=== PATIENT | male | born 1950 | race Caucasian/White ===

== ENCOUNTER 2019-11-26 19:45 | IRF | payer MEDICARE, SELFPAY ==
--- NOTE | 2019-11-26 19:57 | ADMGEN ---
This patient, Antonio Amin, was admitted to [facility] Room 225-01. Patient/family oriented to hospital policies and general routines including ID bracelet, bed and alarms, visiting hours, pain management, procedures, bathroom and other care routines, personal items, smoking policy, room service/diet, and visiting hours. Valuables list has been completed. Information on how to activate the Rapid Response Team has been discussed. Patient/Family are encouraged to report perceived risks to care and to ask questions if they do not understand what they are told or what they should do.
[2019-11-26] MEDS: MORPHINE SULFATE 15 MG TABCR PO (21:21)
[2019-11-26] MEDS: SENNA/DOCUSATE SODIUM TABLET 2 TAB PO (21:22)
[2019-11-26] MEDS: GABAPENTIN 400 MG CAPSULE 1200 MG PO (21:22)
[2019-11-26] MEDS: polyethylene glycoL 3350 17 GM POWD.PACK PO (21:23)
[2019-11-26] MEDS: SIMVASTATIN 10 MG TABLET PO (21:24)
[2019-11-26 21:42] LABS: Glucose Point of Care 132 (65-105)
[2019-11-26 22:00] VITALS: BP 120/63; PULSE 82; RESP 18; TEMP 37.4; O2SAT 99
[2019-11-27 04:56] LABS: Basophils Percent Auto 0.6 % (0.2-1.2); Eosinophils Percent Auto 0.3 % (0-4.4); Hematocrit 37.8 % (42.0-52.0); Hemoglobin 11.4 g/dL (14.0-18.0); Immature Granulocyte Absolute 0.08 K/mm3 (0.00-0.031); Immature Granulocyte Percent A 1.1 % (0-0.5); Lymphocytes Absolute Auto 0.71 K/mm3 (0.9-3.2); Lymphocytes Percent Auto 10.2 % (18.3-44.2); Mean Corpuscular HGB Conc 30.2 g/dl (32-36); Mean Corpuscular Volume 99.5 fl (80-100); Mean Platelet Volume 10.5 fl (7.4-10.4); Monocytes Percent Auto 13.8 % (2.6-8.5); Neutrophils Absolute Auto 5.2 K/mm3 (1.3-6.7); Platelet Count Result 166 k/mm3 (150-375); Red Cell Distribution Width 15.2 % (11.5-14.5)
[2019-11-27 05:04] LABS: Blood Urea Nitrogen 22 mg/dL (9-20); Carbon Dioxide 28 mmol/L (22-30); Chloride 105 mmol/L (98-107); Estimated Glomerular Filt Rate > 60; Glucose 151 mg/dL (75-110); Sodium 136 mmol/L (137-145)
[2019-11-27 05:08] LABS: Hemoglobin A1C 6.3 % (<5.7)
[2019-11-27 06:00] VITALS: BP 116/64; PULSE 85; RESP 20; TEMP 36.7; O2SAT 98
[2019-11-27 06:42] VITALS: BMI 44.1
[2019-11-27 06:44] LABS: Glucose Point of Care 129 (65-105)
[2019-11-27 08:00] VITALS: PULSE 85; RESP 20; O2SAT 98
[2019-11-27] MEDS: metFORMIN HCL XR 500 MG TAB.SR.24H 1000 MG PO (09:01)
[2019-11-27] MEDS: TAMSULOSIN HCL 0.4 MG CAPSULE PO (09:01)
[2019-11-27] MEDS: polyethylene glycoL 3350 17 GM POWD.PACK PO ×2 (09:02→21:01)
[2019-11-27] MEDS: SENNA/DOCUSATE SODIUM TABLET 2 TAB PO ×2 (09:02→21:01)
[2019-11-27] MEDS: GABAPENTIN 400 MG CAPSULE 1200 MG PO ×2 (09:02→21:01)
[2019-11-27] MEDS: MORPHINE SULFATE 15 MG TABCR PO ×2 (10:34→21:06)
[2019-11-27 11:55] LABS: Glucose Point of Care 96 (65-105)
--- NOTE | 2019-11-27 12:30 | WPDREHABHP ---
H&P: HPI History of Present Illness Chief complaint: Left Distal Femur fracture Narrative: Antonio Amin is a 69 year old male HISTORY OF PRESENT ILLNESS: The patient's primary rehab impairment category is 0 4-[id number]-oyaia extremity fracture The etiologic diagnosis is left lower extremity pathologic fracture I saw this patient [id number] on November 27, 2019 at 12:30 p.m. The patient is a 69-year-old right-handed white male with a past medical history of recurrent metastatic renal cell carcinoma ( status post right nephrectomy 2017) closed. 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 Patient stated that it is worse with ambulation and better at rest. He was using a seated walker and pushing himself around on that for mobility for the past couple of weeks prior to presenting to hospital. he also complained of bowel incontinence, abdominal pain, and diarrhea. CT showed any regularity shaped lesion in the distal left femur, acute sigmoid colitis, a new L3 lytic lesion with extension into the spinal canal and T8 lytic lesion with extension into the right central spinal canal. He was transferred to [facility] on November 18, 2019 for further evaluation. It is worth noting the patient right hemiarthroplasty was performed at [facility] in September. Neurosurgery was consulted at the time for the spinal lesion and no surgical intervention was performed back in September I presume this year. Patient followed up with Radiation Oncology as an outpatient and had been receiving radiation to the right femur and spine until he was unable to go due to left knee pain and upon arrival to [facility] on MRI of the thoracic and lumbar spine was ordered and demonstrated the T8 lesion was mildly increased from prior prior imaging with associated extradural soft tissue component causing spinal stenosis, including moderate canal stenosis with partial effacement of the CSF with the tumor contacting the adjacent cord but no cord compression there was moderate T8-T9 right neuroforaminal stenosis and lesion at L3 and S1 with moderate to severe canal stenosis. Orthopedic oncology was consulted and recommended CT of the left lower extremity along with an ortho spine consulted due to lower extremity weakness incontinence. CT of the left lower extremity showed a lytic lesion in the distal femoral metaphysis with associated nondisplaced pathological fracture. The patient went to the operating room on November 24, 2019 for an open reduction internal fixation of the left distal femur with curettage and cementation with Dr. Gudino. Neurosurgery was again consulted for metastasis to the spine and knows neurosurgical intervention was sought as patient does not want intervention on this unless absolutely necessary. Radiation Oncology was consulted and recommended follow-up on an outpatient basis after patient has completed rehabilitation. Palliative Care assisted with pain manage and management and complex medical decision making. Patient understands and would like to continue to pursue treatment and is motivated to regain functional mobility. Patient was started on Cipro and Flagyl for colitis and completed treatment on November 25, 2019. C diff was negative. Postoperatively the patient has experienced acute postoperative pain acute blood-loss anemia hypocalcemia hyperkalemia and constipation. He is weight-bearing as tolerated to the left lower extremity with a walker and weight-bearing as tolerated to the right lower extremity with posterior hip precautions. Patient is on Zometa and gets an injection every 3 months, last injection given 2 weeks prior to admission. Electrolytes will be monitored and just as as necessary he will be di
[2019-11-27 12:50] VITALS: BMI 44.1
[2019-11-27 14:00] VITALS: BP 129/62; PULSE 87; RESP 20; TEMP 37; O2SAT 100
--- NOTE | 2019-11-27 14:08 | RPD ---
INDIVIDUALIZED PLAN OF CARE FOR Antonio Amin Brief Synthesis of Pre-Admission Screen, Post-Admission Evaluation and Therapy Evaluations: The patient presents to rehab with a left lower extremity pathologic fracture. Comorbidities include recurrent metastatic renal cell carcinoma, metastasis to spine, lung, and right hip, type 2 diabetes mellitus, hypertension, and benign prostatic hypertrophy, hypocalcemia, hyperkalemia, acute postoperative pain, acute blood loss anemia, diarrhea, constipation, and acute colitis. The patient?s needs will be best met in an intensive program vs. at a lower level of care. The patient requires physician services for medical oversight, management of postop complications in setting of present comorbidities, and pain management. The patient requires nursing services for DVT prophylactics, infection protection, medication management and education, pressure relief, and wound care. Deficits include:ADLs, Balance, Endurance, Family Training/Education, Mobility, Pain Management, ROM, Safety, Strength, ALEJANDRA Precaution, and Transfers. Crossing Gateman/Case Management for: Discharge Planning and Patient/Family Counseling Physical Therapy: 5 days per week for 90 minutes. Treatments may include: Therapeutic Exercise, Gait Training, Neuromuscular Re-education, Transfer Training, Community Reintegration, Bed Mobility, Patient/Family Education, Wheelchair Mobility Group Therapy/Concurrent Therapy Rationales: -Improve attention span during functional activities in a distracted environment. -Enhance problem solving and/or adequate judgment skills during functional activities in a distracted environment. -Promote increased safety awareness in a distracted environment to reduce fall risk with functional tasks, transfers, and ambulation to allow a more safe, self-sufficient return to the home environment. -Improve dynamic balance skills to promote safety and independence with functional activities in a distracted environment for maximum gain. Occupational Therapy: 5 days per week for 90 minutes. Treatments may include: Therapeutic Exercise, Therapeutic Activity, Cognitive Training, Self-Care Transfer Training, Community Reintegration, Home Management, Patient/Family Education, Wheelchair Mobility Training, Energy Conservation Training Group Therapy/Concurrent Therapy Rationales: -Allow therapist to observe and teach generalization and carry-over of skills learned in individual therapy. -Enhance problem solving and sequencing skills during therapeutic activities in a distracted environment. -Promote increased safety awareness in a realistic setting to reduce fall risk with functional tasks due to visual and verbal distractions. -Increase functional level with ADLs, ADL transfers and use of adaptive equipment through therapeutic activities with others while promoting safety to allow a more safe, self-sufficient return home. Medical Prognosis: Good Anticipated Length of Stay: 10 days Rehab Goals: Eating Goal: 06-Independent Oral Hygiene Goal: 06-Independent Toileting Hygiene Goal: 06-Independent Shower/Bathe Self Goal: 06-Independent Upper Body Dressing Goal: 06-Independent Lower Body Dressing Goal: 06-Independent Putting On/Taking Off Footwear Goal: 06-Independent Rolling Left and Right Goal: 06-Independent Sit to Lying Goal: 06-Independent Lying to Sitting on Side of Bed Goal: 06-Independent Sit to Stand Goal: 06-Independent Chair/Kpp-vk-Ocrdy Transfer Goal: 06-Independent Toilet Transfer Goal: 06-Independent Car Transfer Goal: 06-Independent Walk 10' Goal: 06-Independent Walk 50' with Two Turns Goal: 06-Independent Walk 150' Goal: 06-Independent Walk 10' on Uneven Surface Goal: 06-Independent 1 Step (Curb) Goal: 06-Independent 4 Steps Goal: 06-Independent 12 Steps Goal Score: 06-Independent Picking Up Object Goal: 06-Independent Wheel 50' with Two Turns Score: 06-Independent Wheel 150' Goal: 06-Independent Anticipated discharge destinati
--- NOTE | 2019-11-27 15:11 | PCCCNOTE ---
On 11/27/19, the student, [Allan Wilkinson ], provided care and completed [facility] documentation on this patient. I have reviewed the student's documentation and agree with the findings.
[2019-11-27 18:06] LABS: Glucose Point of Care 101 (65-105)
[2019-11-27] MEDS: FLUTICASONE PROPIONATE 0.05% NA SPR 16 GM BTL (*BKC) 1 SPRAY NASAL (21:01)
[2019-11-27] MEDS: SIMVASTATIN 10 MG TABLET PO (21:02)
[2019-11-27 21:13] LABS: Glucose Point of Care 152 (65-105)
[2019-11-27 22:00] VITALS: BP 118/58; PULSE 79; RESP 18; TEMP 36.4; O2SAT 100
[2019-11-28 05:02] LABS: Glucose Point of Care 121 (65-105)
[2019-11-28 05:50] VITALS: BP 112/56; PULSE 78; RESP 18; TEMP 35.3; O2SAT 98
[2019-11-28 08:00] VITALS: PULSE 78; RESP 18; O2SAT 98
[2019-11-28] MEDS: GABAPENTIN 400 MG CAPSULE 1200 MG PO ×2 (09:15→20:13)
[2019-11-28] MEDS: SENNA/DOCUSATE SODIUM TABLET 2 TAB PO ×2 (09:15→20:13)
[2019-11-28] MEDS: metFORMIN HCL XR 500 MG TAB.SR.24H 1000 MG PO (09:15)
[2019-11-28] MEDS: polyethylene glycoL 3350 17 GM POWD.PACK PO ×2 (09:16→20:14)
[2019-11-28] MEDS: MORPHINE SULFATE 15 MG TABCR PO ×2 (09:16→20:13)
[2019-11-28] MEDS: TAMSULOSIN HCL 0.4 MG CAPSULE PO (09:16)
[2019-11-28 11:53] LABS: Glucose Point of Care 125 (65-105)
[2019-11-28 14:00] VITALS: BP 129/52; PULSE 88; RESP 20; TEMP 36.2; O2SAT 99
[2019-11-28 16:45] LABS: Glucose Point of Care 102 (65-105)
[2019-11-28] MEDS: SIMVASTATIN 10 MG TABLET PO (20:13)
[2019-11-28] MEDS: FLUTICASONE PROPIONATE 0.05% NA SPR 16 GM BTL (*BKC) 1 SPRAY NASAL (20:14)
[2019-11-28 22:00] VITALS: BP 126/55; PULSE 80; RESP 18; TEMP 36.2; O2SAT 97
[2019-11-29 06:00] VITALS: BP 115/48; PULSE 73; RESP 18; TEMP 35.8; O2SAT 98
[2019-11-29 06:34] LABS: Glucose Point of Care 132 (65-105)
[2019-11-29] MEDS: metFORMIN HCL XR 500 MG TAB.SR.24H 1000 MG PO (08:54)
[2019-11-29] MEDS: GABAPENTIN 400 MG CAPSULE 1200 MG PO ×2 (08:54→21:15)
[2019-11-29] MEDS: TAMSULOSIN HCL 0.4 MG CAPSULE PO (08:54)
[2019-11-29] MEDS: SENNA/DOCUSATE SODIUM TABLET 2 TAB PO ×2 (08:55→21:16)
[2019-11-29] MEDS: polyethylene glycoL 3350 17 GM POWD.PACK PO ×2 (08:55→21:16)
[2019-11-29] MEDS: MORPHINE SULFATE 15 MG TABCR PO ×2 (08:55→21:11)
--- NOTE | 2019-11-29 12:48 | WPDNEURORHBP ---
Subjective Date/time seen: S/P left distal femur pathological fracture with recurrent metastatic renal cell carcinoma and multiple metastatic disease,DM,Hypertension, and right [id number]/05/20 12:48 Functional Status Ambulation Ability Ability to Ambulate 10 Feet: Contact Guard Ability to Ambulate 50 Feet With 2 Turns: Contact Guard Ability to Ambulate 150 Feet: Contact Guard Ambulation Assistive Devices: Walker, Wheeled Transfers Ability Ability to Transfer In/Out of Chair: Contact Guard Exam Const: General: cooperative and no acute distress Nutritional Appearance: overweight HENMT: Head: normocephalic Ears: hearing grossly normal bilaterally and external ears normal General nose exam: Normal external nose present and No nasal discharge present Face and sinus: normal facial exam Mouth: Yes Normal oral and palatal mucosa present Eyes: General: appearance normal, both eyes and all related structures Alignment and Position: alignment normal Periorbital: periorbital findings normal Eyelids: eyelids normal Conjunctivae: conjunctivae normal Sclera: sclerae normal Cornea: corneas normal Pupils: Equal, round and reactive pupils present EOM: EOMs intact bilaterally Neck: Neck: normal visual inspection and full ROM Resp: Effort & Inspection: normal respiratory effort Auscultation: clear to auscultation bilaterally Cardio: Rate: regular rate Rhythm: regular rhythm GI: Auscultation: normal bowel sounds Skin: General skin exam: no rashes or lesions noted Neuro: General: patient oriented x3, moves all extremities and CN's II-XI intact bilaterally Cranial nerves: Yes Bilaterally intact EOM present, Yes Nystagmus not present, Yes Midline tongue present and Yes Normal hearing present Cognition (Neuro): normal cognition Speech: normal speech Gait exam (Neuro): Unable to assess gait Motor exam (neuro): Abnormal motor strength present (generalized weekness) Sensory Exam: normal sensation Deep tendon reflexes (DTR's): Right triceps reflex intensity grade: 1+, Left triceps reflex intensity grade: 1+, Rt Biceps (C5, C6): 1+, Left biceps reflex intensity grade: 1+, Right brachioradialis reflex intensity grade: 1+, Left brachioradialis reflex intensity grade: 1+, Right patellar reflex intensity grade: 1+, Left patellar reflex intensity grade: 1+, Right ankle reflex intensity grade: 0 and Left ankle reflex intensity grade: 0 Plantar Reflex Responses: downgoing: bilateral Extrem: General: normal to inspection Psych: Appearance: grossly normal Objective Data Vital Signs Vital Signs: Vital Signs - 24 hr 11/28/19 14:00 11/28/19 22:00 11/29/19 06:00 Temperature 36.2 C L 36.2 C L 35.8 C L Pulse Rate 88 80 73 Respiratory Rate 20 18 18 Blood Pressure 129/52 L 126/55 L 115/48 L Pulse Oximetry 99 97 98 Intake/Output Intake/Output: Intake & Output 11/26/19 11/27/19 11/28/19 11/29/19 23:59 23:59 23:59 23:59 Intake Total 720 1440 480 Balance 720 1440 480 Meds/Results Medications: Active Medications Generic Name Dose Route Start Last Admin Trade Name Freq PRN Reason Stop Dose Admin Hydrocodone Bitart/Acetaminophen 1 tab 11/26/19 20:45 11/27/19 09:00 [place] 5-325 Mg PO 1 tab Q4H PRN Administration Pain, Moderate Aspirin 325 mg 11/27/19 09:00 11/29/19 08:55 Aspirin PO Not Given DAILY RINA Dextrose 12.5 gm 11/26/19 20:53 Dextrose 50% Syringe IV PUSH PRN PRN Hypoglycemia Protocol Fluticasone Propionate 1 spray 11/27/19 21:00 11/28/19 20:14 Flonase 0.05% Nasal [place] NASAL 1 spray HS RINA Administration Gabapentin 1,200 mg 11/26/19 21:00 11/29/19 08:54 Neurontin PO 1,200 mg Q12HR RINA Administration Glucagon 1 mg 11/26/19 20:53 Glucagon For Inj IM PRN PRN Hypoglycemia Protocol Glucose 15 gm 11/26/19 20:53 Glutose 15 PO PRN PRN Hypoglycemia Protocol Dextrose 1,000 mls @ 100 mls/hr 11/26/19 20:53 D
[2019-11-29 14:00] VITALS: BP 122/53; PULSE 78; RESP 20; TEMP 36.6; O2SAT 100
[2019-11-29] MEDS: FLUTICASONE PROPIONATE 0.05% NA SPR 16 GM BTL (*BKC) 1 SPRAY NASAL (21:14)
[2019-11-29] MEDS: SIMVASTATIN 10 MG TABLET PO (21:17)
[2019-11-29 22:00] VITALS: BP 110/87; PULSE 87; RESP 19; TEMP 36.7; O2SAT 99
[2019-11-30 06:00] VITALS: BP 129/49; PULSE 73; RESP 19; TEMP 36.3; O2SAT 100
[2019-11-30 06:59] LABS: Glucose Point of Care 118 (65-105)
[2019-11-30] MEDS: MORPHINE SULFATE 15 MG TABCR PO ×2 (08:26→21:14)
[2019-11-30] MEDS: metFORMIN HCL XR 500 MG TAB.SR.24H 1000 MG PO (08:26)
[2019-11-30] MEDS: GABAPENTIN 400 MG CAPSULE 1200 MG PO ×2 (08:26→20:48)
[2019-11-30] MEDS: TAMSULOSIN HCL 0.4 MG CAPSULE PO (08:27)
[2019-11-30] MEDS: SENNA/DOCUSATE SODIUM TABLET 2 TAB PO ×2 (08:27→20:47)
[2019-11-30] MEDS: polyethylene glycoL 3350 17 GM POWD.PACK PO (08:27)
--- NOTE | 2019-11-30 08:27 | PC.NURSE ---
pt refused asa this shift. md updated.
[2019-11-30 14:00] VITALS: BP 129/59; PULSE 74; RESP 20; TEMP 36.6; O2SAT 100
--- NOTE | 2019-11-30 14:17 | PCPTNOTE ---
Antonio Amin was evaluated for a wheeled walker on 11/30/2019 by this physical therapist. The wheeled walker will resolve patient's mobility limitations and will be used for ADL's within the home. The patient can safely use the wheeled walker. ?The wheeled walker will resolve the patient?s mobility deficits, including safe transfers, gait and ADL's. Barbie Tomas PT
[2019-11-30] MEDS: FLUTICASONE PROPIONATE 0.05% NA SPR 16 GM BTL (*BKC) 1 SPRAY NASAL (20:47)
[2019-11-30] MEDS: SIMVASTATIN 10 MG TABLET PO (20:48)
[2019-11-30 22:00] VITALS: BP 116/54; PULSE 78; RESP 20; TEMP 36.9; O2SAT 99
[2019-12-01 06:00] VITALS: BP 115/57; PULSE 77; RESP 20; TEMP 36.4; O2SAT 97
[2019-12-01 06:41] LABS: Glucose Point of Care 118 (65-105)
[2019-12-01] MEDS: metFORMIN HCL XR 500 MG TAB.SR.24H 1000 MG PO (08:32)
[2019-12-01] MEDS: MORPHINE SULFATE 15 MG TABCR PO ×2 (08:32→20:06)
[2019-12-01] MEDS: GABAPENTIN 400 MG CAPSULE 1200 MG PO ×2 (08:33→20:06)
[2019-12-01] MEDS: TAMSULOSIN HCL 0.4 MG CAPSULE PO (08:33)
--- NOTE | 2019-12-01 09:36 | PC.NURSE ---
pt refused aspirin this morning. aware.
--- NOTE | 2019-12-01 13:16 | WPDNEURORHBP ---
Subjective Date/time seen: 12/01/19 13:16 Interval history: this 69-year-old gentleman is here after having had surgery for left distal femur fracture which was pathological he is doing fairly well and making progress both physical therapy and occupational therapy he actually walked 250 feet with wheel walker and took 4 steps he is weight-bearing as tolerated and is stable he denies any headache nausea vomiting chest pain shortness of breath fever chills throat we discussed in the team conference which I will detail in my plan Review of Systems Review of Systems: All systems reviewed & are unremarkable except as noted in HPI and below Functional Status Ambulation Ability Ability to Ambulate 10 Feet: Standby Assistance Ability to Ambulate 50 Feet With 2 Turns: Standby Assistance Ability to Ambulate 150 Feet: Standby Assistance Ambulation Assistive Devices: Walker, Wheeled Transfers Ability Ability to Transfer In/Out of Chair: Contact Guard Exam Const: General: comfortable and no acute distress HENMT: General nose exam: Normal nares present Mouth: Yes moist mucous membranes Eyes: General: appearance normal, both eyes and all related structures Neck: Neck: supple and no JVD Resp: Effort & Inspection: normal respiratory effort Auscultation: clear to auscultation bilaterally Cardio: Rate: regular rate Rhythm: regular rhythm GI: GI Palp: Yes Soft to palpation Auscultation: normal bowel sounds Skin: General skin exam: normal color and no rashes or lesions noted Neuro: Other: patient is awake alert well oriented not any distress making progress in the rehab still needing some assistance with the activities of daily living we discussed in the tele conference and I will summarize it in my plan Extrem: Other: the incision of the left knee is clean and healthy Psych: Mental Status: mental status grossly normal Objective Data Vital Signs Vital Signs: Vital Signs - 24 hr 11/30/19 14:00 11/30/19 22:00 12/01/19 06:00 Temperature 36.6 C 36.9 C 36.4 C L Pulse Rate 74 78 77 Respiratory Rate 20 20 20 Blood Pressure 129/59 L 116/54 L 115/57 L Pulse Oximetry 100 99 97 Intake/Output Intake/Output: Intake & Output 11/28/19 11/29/19 11/30/19 12/01/19 23:59 23:59 23:59 23:59 Intake Total 1440 1440 720 240 Balance 1440 1440 720 240 Meds/Results Medications: Active Medications Generic Name Dose Route Start Last Admin Trade Name Freq PRN Reason Stop Dose Admin Hydrocodone Bitart/Acetaminophen 1 tab 11/26/19 20:45 12/01/19 12:33 [place] 5-325 Mg PO 1 tab Q4H PRN Administration Pain, Moderate Aspirin 325 mg 11/27/19 09:00 12/01/19 08:33 Aspirin PO Not Given DAILY RINA Dextrose 12.5 gm 11/26/19 20:53 Dextrose 50% Syringe IV PUSH PRN PRN Hypoglycemia Protocol Fluticasone Propionate 1 spray 11/27/19 21:00 11/30/19 20:47 Flonase 0.05% Nasal [place] NASAL 1 spray HS RINA Administration Gabapentin 1,200 mg 11/26/19 21:00 12/01/19 08:33 Neurontin PO 1,200 mg Q12HR RINA Administration Glucagon 1 mg 11/26/19 20:53 Glucagon For Inj IM PRN PRN Hypoglycemia Protocol Glucose 15 gm 11/26/19 20:53 Glutose 15 PO PRN PRN Hypoglycemia Protocol Dextrose 1,000 mls @ 100 mls/hr 11/26/19 20:53 Dextrose 5% 1,000 Ml IVPB PRN PRN Hypoglycemia Protocol Loperamide HCl 2 mg 11/26/19 20:45 Loperamide Hcl PO BID PRN Diarrhea Magnesium Hydroxide 30 ml 11/26/19 20:45 Milk Of Magnesia PO DAILY PRN Constipation Metformin HCl 1,000 mg 11/27/19 08:00 12/01/19 08:32 Glucophage Xr PO 1,000 mg DAILY@0800 RINA Administration Morphine Sulfate 15 mg 11/26/19 21:00 12/01/19 08:32 Ms Contin PO 15 mg Q12HR RINA Administration Ondansetron HCl 4 mg 11/26/19 20:45 Zofran Odt PO Q6H PRN Nausea And Vomiting Polyethylene Glycol 17 gm 11/26/19 21:00 0
[2019-12-01 14:00] VITALS: BP 122/50; PULSE 86; RESP 20; TEMP 36.3; O2SAT 98
--- NOTE | 2019-12-01 18:08 | PC.NURSE ---
spoke with Dr. Chung at [facility] at approx 1400. confirmed that dressing should remain intact, deja wrap may be changed but nothing else should be disturbed. Patient has an appointment on December 08 at 1300. When i spoke with patient he stated is aware of appointment
[2019-12-01] MEDS: SENNA/DOCUSATE SODIUM TABLET 2 TAB PO (20:06)
[2019-12-01] MEDS: SIMVASTATIN 10 MG TABLET PO (20:06)
[2019-12-01] MEDS: polyethylene glycoL 3350 17 GM POWD.PACK PO (20:06)
[2019-12-01] MEDS: FLUTICASONE PROPIONATE 0.05% NA SPR 16 GM BTL (*BKC) 1 SPRAY NASAL (20:07)
[2019-12-01 22:00] VITALS: BP 125/54; PULSE 67; RESP 18; TEMP 36.2; O2SAT 100
[2019-12-02 06:00] VITALS: BP 116/51; PULSE 73; RESP 16; TEMP 36.4; O2SAT 99
[2019-12-02 06:08] LABS: Glucose Point of Care 113 (65-105)
[2019-12-02] MEDS: GABAPENTIN 400 MG CAPSULE 1200 MG PO ×2 (07:48→20:18)
[2019-12-02] MEDS: SENNA/DOCUSATE SODIUM TABLET 2 TAB PO ×2 (07:48→20:18)
[2019-12-02] MEDS: metFORMIN HCL XR 500 MG TAB.SR.24H 1000 MG PO (07:48)
[2019-12-02] MEDS: polyethylene glycoL 3350 17 GM POWD.PACK PO ×2 (07:49→20:18)
[2019-12-02] MEDS: MORPHINE SULFATE 15 MG TABCR PO ×2 (07:49→20:16)
[2019-12-02] MEDS: TAMSULOSIN HCL 0.4 MG CAPSULE PO (07:49)
--- NOTE | 2019-12-02 12:23 | WPDNEURORHBP ---
Subjective Date/time seen: 12/02/19 12:23 Interval history: this 69-year-old is here after having surgery for the pathological fracture of the distal left femur he is walking about 250 feet and is complaining of being stomach upset due to aspirin which I plan to discontinue is doing fairly well and his overall physical status is improving denies any headache nausea vomiting chest pain shortness of breath fever chills sore throat Review of Systems Review of Systems: All systems reviewed & are unremarkable except as noted in HPI and below Functional Status Ambulation Ability Ability to Ambulate 10 Feet: Independent Ability to Ambulate 50 Feet With 2 Turns: Independent Ability to Ambulate 150 Feet: Independent Ambulation Assistive Devices: Walker, Wheeled Transfers Ability Ability to Transfer In/Out of Chair: Contact Guard Exam Const: General: comfortable and no acute distress HENMT: General nose exam: Normal nares present Mouth: Yes moist mucous membranes Eyes: General: appearance normal, both eyes and all related structures Neck: Neck: supple and no JVD Resp: Effort & Inspection: normal respiratory effort Auscultation: clear to auscultation bilaterally Cardio: Rate: regular rate Rhythm: regular rhythm GI: GI Palp: Yes Soft to palpation Auscultation: normal bowel sounds Skin: General skin exam: normal color and no rashes or lesions noted Neuro: Other: patient is awake alert well oriented his weakness in the lower extremities more so than the upper extremities is doing fairly well is walking with a walker up to 250 feet and show significant improvement in his physical and neurological Extrem: General: normal to inspection Psych: Mental Status: mental status grossly normal Objective Data Vital Signs Vital Signs: Vital Signs - 24 hr 12/01/19 14:00 12/01/19 22:00 12/02/19 06:00 Temperature 36.3 C L 36.2 C L 36.4 C L Pulse Rate 86 67 73 Respiratory Rate 20 18 16 Blood Pressure 122/50 L 125/54 L 116/51 L Pulse Oximetry 98 100 99 Intake/Output Intake/Output: Intake & Output 11/29/19 11/30/19 12/01/19 12/02/19 23:59 23:59 23:59 23:59 Intake Total 1440 720 720 240 Balance 1440 720 720 240 Meds/Results Medications: Active Medications Generic Name Dose Route Start Last Admin Trade Name Freq PRN Reason Stop Dose Admin Hydrocodone Bitart/Acetaminophen 1 tab 11/26/19 20:45 12/02/19 07:49 [place] 5-325 Mg PO 1 tab Q4H PRN Administration Pain, Moderate Dextrose 12.5 gm 11/26/19 20:53 Dextrose 50% Syringe IV PUSH PRN PRN Hypoglycemia Protocol Fluticasone Propionate 1 spray 11/27/19 21:00 12/01/19 20:07 Flonase 0.05% Nasal [place] NASAL 1 spray HS RINA Administration Gabapentin 1,200 mg 11/26/19 21:00 12/02/19 07:48 Neurontin PO 1,200 mg Q12HR RINA Administration Glucagon 1 mg 11/26/19 20:53 Glucagon For Inj IM PRN PRN Hypoglycemia Protocol Glucose 15 gm 11/26/19 20:53 Glutose 15 PO PRN PRN Hypoglycemia Protocol Dextrose 1,000 mls @ 100 mls/hr 11/26/19 20:53 Dextrose 5% 1,000 Ml IVPB PRN PRN Hypoglycemia Protocol Loperamide HCl 2 mg 11/26/19 20:45 Loperamide Hcl PO BID PRN Diarrhea Magnesium Hydroxide 30 ml 11/26/19 20:45 Milk Of Magnesia PO DAILY PRN Constipation Metformin HCl 1,000 mg 11/27/19 08:00 12/02/19 07:48 Glucophage Xr PO 1,000 mg DAILY@0800 RINA Administration Morphine Sulfate 15 mg 11/26/19 21:00 12/02/19 07:49 Ms Contin PO 15 mg Q12HR RINA Administration Ondansetron HCl 4 mg 11/26/19 20:45 Zofran Odt PO Q6H PRN Nausea And Vomiting Polyethylene Glycol 17 gm 11/26/19 21:00 12/02/19 07:49 Miralax PO 17 gm Q12HR RINA Administration Senna/Docusate Sodium 2 tab 11/26/19 21:00 12/02/19 07:48 Senokot S Tablet PO 2 tab Q12HR RINA Administration Simvastatin 10 mg 11/26/19
[2019-12-02 14:00] VITALS: BP 127/54; PULSE 84; RESP 20; TEMP 36.3; O2SAT 100
[2019-12-02] MEDS: SIMVASTATIN 10 MG TABLET PO (20:18)
[2019-12-02] MEDS: FLUTICASONE PROPIONATE 0.05% NA SPR 16 GM BTL (*BKC) 1 SPRAY NASAL (20:18)
[2019-12-02 22:00] VITALS: BP 98/53; PULSE 78; RESP 18; TEMP 35.8; O2SAT 100
[2019-12-03 06:00] VITALS: BP 88/63; PULSE 83; RESP 18; TEMP 35.4; O2SAT 100
[2019-12-03 06:03] LABS: Glucose Point of Care 127 (65-105)
[2019-12-03] MEDS: SENNA/DOCUSATE SODIUM TABLET 2 TAB PO ×2 (08:34→21:00)
[2019-12-03] MEDS: MORPHINE SULFATE 15 MG TABCR PO ×2 (08:34→21:00)
[2019-12-03] MEDS: GABAPENTIN 400 MG CAPSULE 1200 MG PO ×2 (08:35→21:00)
[2019-12-03] MEDS: polyethylene glycoL 3350 17 GM POWD.PACK PO ×2 (08:36→21:00)
[2019-12-03] MEDS: TAMSULOSIN HCL 0.4 MG CAPSULE PO (08:36)
[2019-12-03] MEDS: metFORMIN HCL XR 500 MG TAB.SR.24H 1000 MG PO (08:36)
[2019-12-03 08:40] VITALS: PULSE 86; RESP 20; O2SAT 100
--- NOTE | 2019-12-03 12:48 | WPDNEURORHBP ---
Subjective Date/time seen: 12/03/19 12:48 Interval history: this 69-year-old is here after having had surgery for the distal left femur fracture which is pathological related to underlying cancer is done however very well and in the rehab and quite happy with the improvement he has had no complains of headache nausea vomiting chest pain shortness of breath fever chills sore throat Review of Systems Review of Systems: All systems reviewed & are unremarkable except as noted in HPI and below Functional Status Ambulation Ability Ability to Ambulate 10 Feet: Independent Ability to Ambulate 50 Feet With 2 Turns: Independent Ability to Ambulate 150 Feet: Independent Ambulation Assistive Devices: Walker, Wheeled Transfers Ability Ability to Transfer In/Out of Chair: Contact Guard Exam Const: General: comfortable and no acute distress HENMT: General nose exam: Normal nares present Mouth: Yes moist mucous membranes Eyes: General: appearance normal, both eyes and all related structures Neck: Neck: supple and no JVD Resp: Effort & Inspection: normal respiratory effort Auscultation: clear to auscultation bilaterally Cardio: Rate: regular rate Rhythm: regular rhythm GI: GI Palp: Yes Soft to palpation Auscultation: normal bowel sounds Skin: General skin exam: normal color and no rashes or lesions noted Neuro: Other: patient is awake alert well oriented to time place and person is speech language function normal cranial examination is normal this strength in the lower extremities is improved Extrem: Other: the incision of the left knee surgeries clean Psych: Mental Status: mental status grossly normal Objective Data Vital Signs Vital Signs: Vital Signs - 24 hr 12/03/19 14:00 12/03/19 21:53 12/04/19 06:00 Temperature 36.6 C 36.3 C L 35.9 C L Pulse Rate 74 73 65 Respiratory Rate 18 18 18 Blood Pressure 121/54 L 116/55 L 115/45 L Pulse Oximetry 100 98 98 Intake/Output Intake/Output: Intake & Output 12/01/19 12/02/19 12/03/19 12/04/19 23:59 23:59 23:59 23:59 Intake Total 720 720 960 240 Balance 720 720 960 240 Meds/Results Medications: Active Medications Generic Name Dose Route Start Last Admin Trade Name Freq PRN Reason Stop Dose Admin Hydrocodone Bitart/Acetaminophen 1 tab 11/26/19 20:45 12/03/19 17:09 [place] 5-325 Mg PO 1 tab Q4H PRN Administration Pain, Moderate Dextrose 12.5 gm 11/26/19 20:53 Dextrose 50% Syringe IV PUSH PRN PRN Hypoglycemia Protocol Fluticasone Propionate 1 spray 11/27/19 21:00 12/03/19 21:00 Flonase 0.05% Nasal [place] NASAL 1 spray HS RINA Administration Gabapentin 1,200 mg 11/26/19 21:00 12/04/19 09:22 Neurontin PO 1,200 mg Q12HR RINA Administration Glucagon 1 mg 11/26/19 20:53 Glucagon For Inj IM PRN PRN Hypoglycemia Protocol Glucose 15 gm 11/26/19 20:53 Glutose 15 PO PRN PRN Hypoglycemia Protocol Dextrose 1,000 mls @ 100 mls/hr 11/26/19 20:53 Dextrose 5% 1,000 Ml IVPB PRN PRN Hypoglycemia Protocol Loperamide HCl 2 mg 11/26/19 20:45 Loperamide Hcl PO BID PRN Diarrhea Magnesium Hydroxide 30 ml 11/26/19 20:45 Milk Of Magnesia PO DAILY PRN Constipation Metformin HCl 1,000 mg 11/27/19 08:00 12/04/19 09:22 Glucophage Xr PO 1,000 mg DAILY@0800 RINA Administration Morphine Sulfate 15 mg 11/26/19 21:00 12/04/19 09:22 Ms Contin PO 15 mg Q12HR RINA Administration Ondansetron HCl 4 mg 11/26/19 20:45 Zofran Odt PO Q6H PRN Nausea And Vomiting Polyethylene Glycol 17 gm 11/26/19 21:00 12/04/19 09:22 Miralax PO 17 gm Q12HR RINA Administration Senna/Docusate Sodium 2 tab 11/26/19 21:00 12/04/19 09:22 Senokot S Tablet PO 2 tab Q12HR RINA Administration Simvastatin 10 mg 11/26/19 21:00 12/03/19 21:00 Zocor PO 10 mg HS RINA Administration Tamsulosin HCl 0.
[2019-12-03 14:00] VITALS: BP 121/54; PULSE 74; RESP 18; TEMP 36.6; O2SAT 100
[2019-12-03] MEDS: FLUTICASONE PROPIONATE 0.05% NA SPR 16 GM BTL (*BKC) 1 SPRAY NASAL (21:00)
[2019-12-03] MEDS: SIMVASTATIN 10 MG TABLET PO (21:00)
[2019-12-03 21:53] VITALS: BP 116/55; PULSE 73; RESP 18; TEMP 36.3; O2SAT 98
[2019-12-04 05:24] LABS: Basophils Percent Auto 0.8 % (0.2-1.2); Eosinophils Absolute Auto 0.1 K/mm3 (0-0.3); Eosinophils Percent Auto 2.7 % (0-4.4); Hematocrit 35.9 % (42.0-52.0); Hemoglobin 10.8 g/dL (14.0-18.0); Immature Granulocyte Absolute 0.06 K/mm3 (0.00-0.031); Immature Granulocyte Percent A 1.2 % (0-0.5); Lymphocytes Absolute Auto 0.75 K/mm3 (0.9-3.2); Lymphocytes Percent Auto 15.3 % (18.3-44.2); Mean Corpuscular HGB Conc 30.1 g/dl (32-36); Mean Corpuscular Hemoglobin 29.5 pg (26-34); Mean Corpuscular Volume 98.1 fl (80-100); Monocytes Absolute Auto 0.5 K/mm3 (0.1-0.6); Monocytes Percent Auto 10.2 % (2.6-8.5); Neutrophils Absolute Auto 3.4 K/mm3 (1.3-6.7); Neutrophils Percent Auto 69.8 % (45.5-73.1); Platelet Count Result 241 k/mm3 (150-375); Red Blood Count 3.66 M/mm3 (4.6-6.20); Red Cell Distribution Width 14.9 % (11.5-14.5); White Blood Count 4.9 K/mm3 (4.5-10.0)
[2019-12-04 05:36] LABS: Blood Urea Nitrogen 17 mg/dL (9-20); Calcium 8.3 mg/dL (8.4-10.2); Carbon Dioxide 27 mmol/L (22-30); Chloride 108 mmol/L (98-107); Estimated CRCL calculation 121 ml/min; Estimated Glomerular Filt Rate > 60; Glucose 120 mg/dL (75-110); Potassium 4.8 mmol/L (3.4-5.0); Sodium 137 mmol/L (137-145)
[2019-12-04 06:00] VITALS: BP 115/45; PULSE 65; RESP 18; TEMP 35.9; O2SAT 98
[2019-12-04 06:57] LABS: Glucose Point of Care 102 (65-105)
[2019-12-04] MEDS: TAMSULOSIN HCL 0.4 MG CAPSULE PO (09:22)
[2019-12-04] MEDS: metFORMIN HCL XR 500 MG TAB.SR.24H 1000 MG PO (09:22)
[2019-12-04] MEDS: SENNA/DOCUSATE SODIUM TABLET 2 TAB PO ×2 (09:22→20:02)
[2019-12-04] MEDS: polyethylene glycoL 3350 17 GM POWD.PACK PO ×2 (09:22→20:02)
[2019-12-04] MEDS: GABAPENTIN 400 MG CAPSULE 1200 MG PO ×2 (09:22→20:01)
[2019-12-04] MEDS: MORPHINE SULFATE 15 MG TABCR PO ×2 (09:22→20:01)
--- NOTE | 2019-12-04 11:04 | PCDIET ---
Nutrition Follow-Up Complete: Nutrition Diagnosis: Obesity related to history of excessive energy intake as evidencedy by BMI of 44.1. Nutrition Goal: Patient to consume 75% of meals or greater, weight loss of 1-2 pounds per week. Goal in progress. Patient consuming 100% of meals on diabetic diet which is appropriate. Patient only c/o restricted diet; states he has discussed with MD. Unable to obtain whether patient has lost weight. Recommend obtaining new weight. Last recorded weight is 135.6 kg. Bowel Motility: +BM today. Labs Reviewed: Glu (120), Ca (8.3) Meds Noted: [place], Glucophage, MS Contin, Miralax, Senna Additional Notes: Left leg with surgical incision. No documented pressure sores. Will continue to monitor with same goals. Nutrition Monitoring and Evaluation: Follow up every 7 days.
--- NOTE | 2019-12-04 13:53 | WPDNEURORHBP ---
Subjective Date/time seen: 12/04/19 13:53 Interval history: this 69-year-old gentleman is here after having had surgery for the pathological fracture of the left distal femur who is in the dressing is doing well denies any headache nausea vomiting chest pain shortness of breath fever chills sore throat he has underlying malignancy which has been described earlier in my history Review of Systems Review of Systems: All systems reviewed & are unremarkable except as noted in HPI and below Functional Status Ambulation Ability Ability to Ambulate 10 Feet: Independent Ability to Ambulate 50 Feet With 2 Turns: Independent Ability to Ambulate 150 Feet: Independent Ambulation Assistive Devices: Walker, Wheeled Transfers Ability Ability to Transfer In/Out of Chair: Independent Exam Const: General: comfortable and no acute distress HENMT: General nose exam: Normal nares present Mouth: Yes moist mucous membranes Eyes: General: appearance normal, both eyes and all related structures Neck: Neck: supple and no JVD Resp: Effort & Inspection: normal respiratory effort Auscultation: clear to auscultation bilaterally Cardio: Rate: regular rate Rhythm: regular rhythm GI: GI Palp: Yes Soft to palpation Auscultation: normal bowel sounds Skin: General skin exam: normal color and no rashes or lesions noted Neuro: Other: patient is awake alert well oriented to time place and person he is weight-bearing as tolerated and is walking quite a bit and doing remarkably well in the rehab Extrem: Other: the left distal femur surgery incision is clean no drainage is noted no sign of infectious process seen Psych: Mental Status: mental status grossly normal Objective Data Vital Signs Vital Signs: Vital Signs - 24 hr 12/04/19 14:00 12/04/19 22:00 12/05/19 06:00 Temperature 36.9 C 36.8 C 36.6 C Pulse Rate 83 71 65 Respiratory Rate 20 19 19 Blood Pressure 125/59 L 117/46 L 119/47 L Pulse Oximetry 99 99 98 12/05/19 09:00 Temperature Pulse Rate 65 Respiratory Rate 19 Blood Pressure Pulse Oximetry 98 Intake/Output Intake/Output: Intake & Output 12/02/19 12/03/19 12/04/19 12/05/19 23:59 23:59 23:59 23:59 Intake Total 720 960 960 240 Balance 720 960 960 240 Meds/Results Medications: Active Medications Generic Name Dose Route Start Last Admin Trade Name Freq PRN Reason Stop Dose Admin Hydrocodone Bitart/Acetaminophen 1 tab 11/26/19 20:45 12/05/19 10:57 [place] 5-325 Mg PO 1 tab Q4H PRN Administration Pain, Moderate Dextrose 12.5 gm 11/26/19 20:53 Dextrose 50% Syringe IV PUSH PRN PRN Hypoglycemia Protocol Fluticasone Propionate 1 spray 11/27/19 21:00 12/04/19 20:02 Flonase 0.05% Nasal [place] NASAL 1 spray HS RINA Administration Gabapentin 1,200 mg 11/26/19 21:00 12/05/19 09:05 Neurontin PO 1,200 mg Q12HR RINA Administration Glucagon 1 mg 11/26/19 20:53 Glucagon For Inj IM PRN PRN Hypoglycemia Protocol Glucose 15 gm 11/26/19 20:53 Glutose 15 PO PRN PRN Hypoglycemia Protocol Dextrose 1,000 mls @ 100 mls/hr 11/26/19 20:53 Dextrose 5% 1,000 Ml IVPB PRN PRN Hypoglycemia Protocol Loperamide HCl 2 mg 11/26/19 20:45 Loperamide Hcl PO BID PRN Diarrhea Magnesium Hydroxide 30 ml 11/26/19 20:45 Milk Of Magnesia PO DAILY PRN Constipation Metformin HCl 1,000 mg 11/27/19 08:00 12/05/19 09:06 Glucophage Xr PO 1,000 mg DAILY@0800 RINA Administration Morphine Sulfate 15 mg 11/26/19 21:00 12/05/19 09:07 Ms Contin PO 15 mg Q12HR RINA Administration Ondansetron HCl 4 mg 11/26/19 20:45 Zofran Odt PO Q6H PRN Nausea And Vomiting Polyethylene Glycol 17 gm 11/26/19 21:00 12/05/19 09:08 Miralax PO 17 gm Q12HR RINA Administration Senna/Docusate Sodium 2 tab 11/26/19 21:00 12/05/19 09:06 Senokot S Tablet PO 2 tab Q12HR RINA
[2019-12-04 14:00] VITALS: BP 125/59; PULSE 83; RESP 20; TEMP 36.9; O2SAT 99
[2019-12-04] MEDS: SIMVASTATIN 10 MG TABLET PO (20:02)
[2019-12-04] MEDS: FLUTICASONE PROPIONATE 0.05% NA SPR 16 GM BTL (*BKC) 1 SPRAY NASAL (20:02)
[2019-12-04 22:00] VITALS: BP 117/46; PULSE 71; RESP 19; TEMP 36.8; O2SAT 99
[2019-12-05 06:00] VITALS: BP 119/47; PULSE 65; RESP 19; TEMP 36.6; O2SAT 98
[2019-12-05 06:46] LABS: Glucose Point of Care 120 (65-105)
[2019-12-05 09:00] VITALS: PULSE 65; RESP 19; O2SAT 98
[2019-12-05] MEDS: GABAPENTIN 400 MG CAPSULE 1200 MG PO ×2 (09:05→20:27)
[2019-12-05] MEDS: SENNA/DOCUSATE SODIUM TABLET 2 TAB PO ×2 (09:06→20:26)
[2019-12-05] MEDS: TAMSULOSIN HCL 0.4 MG CAPSULE PO (09:06)
[2019-12-05] MEDS: metFORMIN HCL XR 500 MG TAB.SR.24H 1000 MG PO (09:06)
[2019-12-05] MEDS: MORPHINE SULFATE 15 MG TABCR PO ×2 (09:07→20:29)
[2019-12-05] MEDS: polyethylene glycoL 3350 17 GM POWD.PACK PO ×2 (09:08→20:27)
[2019-12-05 14:00] VITALS: BP 128/55; PULSE 78; RESP 20; TEMP 36.9; O2SAT 99
--- NOTE | 2019-12-05 15:14 | WPDNEURORHBP ---
Subjective Date/time seen: 12/05/19 15:14 Interval history: this 69-year-old gentleman is after having had surgery for the pathological fracture of the left distal femur which is in the dressing and the You wrap is doing fairly well walking quite a bit over 200 feet his weakness in general has improved he denies any headache nausea vomiting chest pain shortness of breath fever chills sore throat Review of Systems Review of Systems: All systems reviewed & are unremarkable except as noted in HPI and below Functional Status Ambulation Ability Ability to Ambulate 10 Feet: Independent Ability to Ambulate 50 Feet With 2 Turns: Independent Ability to Ambulate 150 Feet: Independent Ambulation Assistive Devices: Walker, Wheeled Transfers Ability Ability to Transfer In/Out of Chair: Independent Exam Const: General: comfortable and no acute distress HENMT: General nose exam: Normal nares present Mouth: Yes moist mucous membranes Eyes: General: appearance normal, both eyes and all related structures Neck: Neck: supple and no JVD Resp: Effort & Inspection: normal respiratory effort Auscultation: clear to auscultation bilaterally Cardio: Rate: regular rate Rhythm: regular rhythm GI: GI Palp: Yes Soft to palpation Auscultation: normal bowel sounds Skin: General skin exam: normal color and no rashes or lesions noted Neuro: Other: patient is awake alert well oriented time place and person the speech and language functions normal cranial exam is normal strength in the lower extremities is improving likewise upper extremity strength is back to normal Extrem: Other: the left lower extremities in the dressing and the You wrap Psych: Mental Status: mental status grossly normal Objective Data Vital Signs Vital Signs: Vital Signs - 24 hr 12/04/19 22:00 12/05/19 06:00 12/05/19 09:00 Temperature 36.8 C 36.6 C Pulse Rate 71 65 65 Respiratory Rate 19 19 19 Blood Pressure 117/46 L 119/47 L Pulse Oximetry 99 98 98 Intake/Output Intake/Output: Intake & Output 12/02/19 12/03/19 12/04/19 12/05/19 23:59 23:59 23:59 23:59 Intake Total 720 960 960 480 Balance 720 960 960 480 Meds/Results Medications: Active Medications Generic Name Dose Route Start Last Admin Trade Name Freq PRN Reason Stop Dose Admin Hydrocodone Bitart/Acetaminophen 1 tab 11/26/19 20:45 12/05/19 13:56 [place] 5-325 Mg PO 1 tab Q4H PRN Administration Pain, Moderate Dextrose 12.5 gm 11/26/19 20:53 Dextrose 50% Syringe IV PUSH PRN PRN Hypoglycemia Protocol Fluticasone Propionate 1 spray 11/27/19 21:00 12/04/19 20:02 Flonase 0.05% Nasal [place] NASAL 1 spray HS RINA Administration Gabapentin 1,200 mg 11/26/19 21:00 12/05/19 09:05 Neurontin PO 1,200 mg Q12HR RINA Administration Glucagon 1 mg 11/26/19 20:53 Glucagon For Inj IM PRN PRN Hypoglycemia Protocol Glucose 15 gm 11/26/19 20:53 Glutose 15 PO PRN PRN Hypoglycemia Protocol Dextrose 1,000 mls @ 100 mls/hr 11/26/19 20:53 Dextrose 5% 1,000 Ml IVPB PRN PRN Hypoglycemia Protocol Loperamide HCl 2 mg 11/26/19 20:45 Loperamide Hcl PO BID PRN Diarrhea Magnesium Hydroxide 30 ml 11/26/19 20:45 Milk Of Magnesia PO DAILY PRN Constipation Metformin HCl 1,000 mg 11/27/19 08:00 12/05/19 09:06 Glucophage Xr PO 1,000 mg DAILY@0800 RINA Administration Morphine Sulfate 15 mg 11/26/19 21:00 12/05/19 09:07 Ms Contin PO 15 mg Q12HR RINA Administration Ondansetron HCl 4 mg 11/26/19 20:45 Zofran Odt PO Q6H PRN Nausea And Vomiting Polyethylene Glycol 17 gm 11/26/19 21:00 12/05/19 09:08 Miralax PO 17 gm Q12HR RINA Administration Senna/Docusate Sodium 2 tab 11/26/19 21:00 12/05/19 09:06 Senokot S Tablet PO 2 tab Q12HR RINA Administration Simvastatin 10 mg 11/26/19 21:00 12/04/19 20:02 Zocor PO
[2019-12-05] MEDS: FLUTICASONE PROPIONATE 0.05% NA SPR 16 GM BTL (*BKC) 1 SPRAY NASAL (20:26)
[2019-12-05] MEDS: SIMVASTATIN 10 MG TABLET PO (20:27)
[2019-12-05 21:56] VITALS: BP 128/58; PULSE 75; RESP 18; TEMP 37.6; O2SAT 98
[2019-12-06 06:00] VITALS: BP 117/56; PULSE 61; RESP 20; TEMP 36.7; O2SAT 98
[2019-12-06 07:00] LABS: Glucose Point of Care 119 (65-105)
[2019-12-06] MEDS: metFORMIN HCL XR 500 MG TAB.SR.24H 1000 MG PO (08:23)
[2019-12-06] MEDS: SENNA/DOCUSATE SODIUM TABLET 2 TAB PO ×2 (08:23→20:42)
[2019-12-06] MEDS: TAMSULOSIN HCL 0.4 MG CAPSULE PO (08:24)
[2019-12-06] MEDS: polyethylene glycoL 3350 17 GM POWD.PACK PO ×2 (08:24→20:45)
[2019-12-06] MEDS: GABAPENTIN 400 MG CAPSULE 1200 MG PO ×2 (08:24→20:43)
[2019-12-06] MEDS: MORPHINE SULFATE 15 MG TABCR PO ×2 (08:24→20:45)
[2019-12-06 14:00] VITALS: BP 133/49; PULSE 83; RESP 20; TEMP 36.6; O2SAT 99
--- NOTE | 2019-12-06 18:52 | WPDNEURORHBP ---
Subjective Date/time seen: 12/06/19 18:52 Interval history: this 69-year-old is here after having had surgery for the distal left femur pathological fracture he is doing remarkably well and is slated to be discharged tomorrow he denies any headache nausea vomiting chest pain shortness of breath fever chills sore throat overall weakness has improved and he is making excellent progress and is in independent living Review of Systems Review of Systems: All systems reviewed & are unremarkable except as noted in HPI and below Functional Status Ambulation Ability Ability to Ambulate 10 Feet: Independent Ability to Ambulate 50 Feet With 2 Turns: Independent Ability to Ambulate 150 Feet: Independent Ambulation Assistive Devices: Walker, Wheeled Transfers Ability Ability to Transfer In/Out of Chair: Independent Exam Const: General: comfortable and no acute distress HENMT: General nose exam: Normal nares present Mouth: Yes moist mucous membranes Eyes: General: appearance normal, both eyes and all related structures Neck: Neck: supple and no JVD Resp: Effort & Inspection: normal respiratory effort Auscultation: clear to auscultation bilaterally Cardio: Rate: regular rate Rhythm: regular rhythm GI: GI Palp: Yes Soft to palpation Auscultation: normal bowel sounds Skin: General skin exam: normal color and no rashes or lesions noted Neuro: Other: patient is awake alert well oriented time place and person speech and language functions normal cranial exam shows normal strength in the lower extremities has significantly improved likewise the upper extremity Extrem: Other: the incision from the surgery is clean Psych: Mental Status: mental status grossly normal Objective Data Vital Signs Vital Signs: Vital Signs - 24 hr 12/05/19 21:56 12/06/19 06:00 12/06/19 14:00 Temperature 37.6 C 36.7 C 36.6 C Pulse Rate 75 61 83 Respiratory Rate 18 20 20 Blood Pressure 128/58 L 117/56 L 133/49 L Pulse Oximetry 98 98 99 Intake/Output Intake/Output: Intake & Output 12/03/19 12/04/19 12/05/19 12/06/19 23:59 23:59 23:59 23:59 Intake Total 960 960 720 720 Balance 960 960 720 720 Meds/Results Medications: Active Medications Generic Name Dose Route Start Last Admin Trade Name Freq PRN Reason Stop Dose Admin Hydrocodone Bitart/Acetaminophen 1 tab 11/26/19 20:45 12/06/19 14:00 [place] 5-325 Mg PO 1 tab Q4H PRN Administration Pain, Moderate Dextrose 12.5 gm 11/26/19 20:53 Dextrose 50% Syringe IV PUSH PRN PRN Hypoglycemia Protocol Fluticasone Propionate 1 spray 11/27/19 21:00 12/05/19 20:26 Flonase 0.05% Nasal [place] NASAL 1 spray HS RINA Administration Gabapentin 1,200 mg 11/26/19 21:00 12/06/19 08:24 Neurontin PO 1,200 mg Q12HR RINA Administration Glucagon 1 mg 11/26/19 20:53 Glucagon For Inj IM PRN PRN Hypoglycemia Protocol Glucose 15 gm 11/26/19 20:53 Glutose 15 PO PRN PRN Hypoglycemia Protocol Dextrose 1,000 mls @ 100 mls/hr 11/26/19 20:53 Dextrose 5% 1,000 Ml IVPB PRN PRN Hypoglycemia Protocol Loperamide HCl 2 mg 11/26/19 20:45 Loperamide Hcl PO BID PRN Diarrhea Magnesium Hydroxide 30 ml 11/26/19 20:45 Milk Of Magnesia PO DAILY PRN Constipation Metformin HCl 1,000 mg 11/27/19 08:00 12/06/19 08:23 Glucophage Xr PO 1,000 mg DAILY@0800 RINA Administration Morphine Sulfate 15 mg 11/26/19 21:00 12/06/19 08:24 Ms Contin PO 15 mg Q12HR RINA Administration Ondansetron HCl 4 mg 11/26/19 20:45 Zofran Odt PO Q6H PRN Nausea And Vomiting Polyethylene Glycol 17 gm 11/26/19 21:00 12/06/19 08:24 Miralax PO 17 gm Q12HR RINA Administration Senna/Docusate Sodium 2 tab 11/26/19 21:00 12/06/19 08:23 Senokot S Tablet PO 2 tab Q12HR RINA Administration Simvastatin 10 mg 11/26/19 21:00 12/05/19 20:27 Zocor PO
[2019-12-06] MEDS: FLUTICASONE PROPIONATE 0.05% NA SPR 16 GM BTL (*BKC) 1 SPRAY NASAL (20:43)
[2019-12-06] MEDS: SIMVASTATIN 10 MG TABLET PO (20:45)
[2019-12-06 22:00] VITALS: BP 116/57; PULSE 72; RESP 18; TEMP 36.3; O2SAT 100
[2019-12-07 06:00] VITALS: BP 112/57; PULSE 67; RESP 18; TEMP 36; O2SAT 96
[2019-12-07 07:02] LABS: Glucose Point of Care 115 (65-105)
[2019-12-07] MEDS: GABAPENTIN 400 MG CAPSULE 1200 MG PO (08:25)
[2019-12-07] MEDS: MORPHINE SULFATE 15 MG TABCR PO (08:26)
[2019-12-07] MEDS: TAMSULOSIN HCL 0.4 MG CAPSULE PO (08:26)
[2019-12-07] MEDS: metFORMIN HCL XR 500 MG TAB.SR.24H 1000 MG PO (08:26)
--- NOTE | 2019-12-08 13:47 | PM.DS ---
DS: Admitting Diagnosis Admitting Diagnosis Admitting Diagnosis: Pathological fracture, left femur, initial encounter for fracture DS: Discharge Diagnosis Discharge Diagnosis (1) Renal cell carcinoma: Code(s): C64.9 - Malignant neoplasm of unspecified kidney, except renal pelvis Status: Acute (2) Status post radiation therapy: Code(s): Z92.3 - Personal history of irradiation Status: Acute (3) Metastatic disease: Code(s): C79.9 - Secondary malignant neoplasm of unspecified site Status: Acute (4) Status post open reduction and internal fixation (ORIF) of fracture: Code(s): Z98.890 - Other specified postprocedural states; Z87.81 - Personal history of (healed) traumatic fracture Status: Acute (5) Pathological fracture: Code(s): M84.40XA - Pathological fracture, unspecified site, initial encounter for fracture Status: Acute DS: Summary Hospital Course Reason for hospitalization: this 69-year-old gentleman was admitted because of having had surgery for the distal femur fracture which was a pathological fracture fracture related to his underlying malignancy as has been detailed in my initial history and physical the patient was quite motivated and quite Courage is and he did remarkably well and was able to achieve the following independent measures Hospital Course: eating independent oral hygiene independent toileting independent bathing independent upper body dressing independent lower body dressing independent footwear independent rolling in bed independent sitting to lying independent lying to sitting independent [id number] independent chair transfers independent toilet transfers independent car transfers independent walking 10 feet independent walking 50 feet due to turns independent walking 150 feet independent walking 10 feet uneven surfaces independent car better step independent 4 steps independent 12 steps supervision picking objects independent wheelchair 50 feet independent and wheelchair 150 feet independent The patient was sent home with home health follow-up with the physicians involved in his care no falls were recorded Time Spent with Patient Time attestation: Total time spent providing and/or coordinating discharge services: Exam Const: General: comfortable and no acute distress HENMT: General nose exam: Normal nares present Mouth: Yes dry mucous membranes Eyes: General: appearance normal, both eyes and all related structures Neck: Neck: supple and no JVD Resp: Effort & Inspection: normal respiratory effort Auscultation: clear to auscultation bilaterally Cardio: Rate: regular rate Rhythm: regular rhythm GI: GI Palp: Yes Soft to palpation Auscultation: normal bowel sounds Skin: General skin exam: normal color and no rashes or lesions noted Neuro: Other: patient greatly improved overall and was independent in most of the activities of daily living of course he does have evidence of peripheral neuropathy most likely related to his underlying malignancy Extrem: General: normal to inspection Other: the incision from the surgery was clean and it was wrapped up with the You wrap because the swelling Psych: Mental Status: mental status grossly normal Discharge Plan Discharge Attending physician on discharge: Moshe Ruvalcaba Discharging Clinician: Moshe Ruvalcaba Anticipated Discharge Date/Time: 12/07/19 18:54 Patient Disposition: Home Health Service Activity: may shower and no driving Diet: as tolerated Wound Care Instructions: follow printed instructions Discharge Instructions: follow-up with the surgeons follow-up with the oncologist follow-up with the primary care physician next line, should not be driving to the surgeons clearly mop Per Care Coordination: Home Health services have been arranged through [facility] ([place], [place]). [facility] ([place], [place]) can be contacted at [phone]. Please fax discharge instructions to [facility]
== END 2019-12-07 13:30 | disposition home health service (06) | DRG 560 ==
PROVIDERS: Admitting Provider Psychiatry & Neurology Neurology; PCP Internal Medicine; Visit Provider Psychiatry & Neurology Neurology
DX: M84.552D Pathological fracture in neoplastic disease, left femur, subsequent encounter for fracture with routine healing (principal); C64.9 Malignant neoplasm of unspecified kidney, except renal pelvis; C78.00 Secondary malignant neoplasm of unspecified lung; C79.51 Secondary malignant neoplasm of bone; C79.89 Secondary malignant neoplasm of other specified sites; Z90.5 Acquired absence of kidney; E11.42 Type 2 diabetes mellitus with diabetic polyneuropathy; E83.51 Hypocalcemia; I10 Essential (primary) hypertension; K52.89 Other specified noninfective gastroenteritis and colitis; N40.0 Benign prostatic hyperplasia without lower urinary tract symptoms; Z92.3 Personal history of irradiation; Z96.641 Presence of right artificial hip joint; Z98.890 Other specified postprocedural states; Z87.891 Personal history of nicotine dependence; Z79.84 Long term (current) use of oral hypoglycemic drugs
CPT/HCPCS: 36415; 80048; 83036; 85025; 97110; 97116; 97162; 97166; 97530; 97535; 97542; A9270